=== PATIENT | male | born 1990 | race Caucasian/White ===

== ENCOUNTER 2024-03-13 16:01 | Outpatient (CLI) | payer BC, SELFPAY ==
--- NOTE | ~2024-03-13 | XR_ITS ---
Left Hand Technique: PA, oblique, and lateral views were obtained. Clinical History: Other specified soft tissue disorder Findings: No acute fracture or dislocation is seen. Osseous alignment is anatomic. There is irregular ity of the base of the distal phalanx of the thumb, suggestive of subacute or possible chronic fractu re deformity with possible and nonopacified degenerative change of the interphalangeal joint. Remaini ng osseous structures and joint spaces are intact. Soft tissues are unremarkable. 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 If there is concern for acute fracture, then consider CT or MR for further evaluation. Reviewed, dictated and finalized at location . Impression: Probable subacute to chronic fracture deformity of the base of the distal findi ngs of the thumb with suspected mild posttraumatic degenerative change of the i nterphalangeal joint of the thumb. If there is concern for acute fracture, then consider CT or MR for further evaluation.
[2024-03-13 18:36] LABS: Hematocrit 45.8 % (42.0-52.0); Hemoglobin 15.8 g/dL (14.0-18.0); Mean Corpuscular HGB Conc 34.5 g/dl (32-36); Mean Corpuscular Hemoglobin 30.3 pg (26-34); Mean Corpuscular Volume 87.7 fl (80-100); Mean Platelet Volume 10.3 fl (7.4-10.4); Platelet Count Result 250 k/mm3 (150-375); Red Blood Count 5.22 M/mm3 (4.6-6.20); Red Cell Distribution Width 13.2 % (11.5-14.5); White Blood Count 8.7 K/mm3 (4.5-10.0)
[2024-03-13 20:11] LABS: Alanine Aminotransferase 33 U/L (6-50); Albumin Level 4.5 g/dL (3.5-5.1); Alkaline Phosphatase 86 U/L (38-126); Anion Gap 7 mmol/L (4-12); Aspartate Amino Transferase 43 U/L (17-59); Bilirubin,Total 0.5 mg/dL (0.2-1.3); Blood Urea Nitrogen 17 mg/dL (9-20); Calcium 8.9 mg/dL (8.4-10.2); Carbon Dioxide 28 mmol/L (22-30); Chloride 105 mmol/L (98-107); Cholesterol 168 mg/dL (0-200); Estimated Glomerular Filt Rate > 60; Glucose 86 mg/dL (65-110); HDL Direct 32 mg/dL; Sodium 140 mmol/L (137-145); Triglycerides 319 mg/dL (<150); Uric Acid 4.6 mg/dL (3.5-8.5)
[2024-03-13 20:22] LABS: LDL Cholesterol Direct 102 mg/dL
[2024-03-13 21:09] LABS: Hemoglobin A1C 5.2 % (<5.7)
[2024-03-13 21:15] LABS: Folic Acid 12.2 ng/mL (2.76->20)
[2024-03-14 14:58] LABS: ANA Cascade Screen NEGATIVE (NEGATIVE)
== END 2024-03-13 16:02 | disposition home or self-care (01) ==
PROVIDERS: PCP Nurse Practitioner Adult Health; Visit Provider Nurse Practitioner Adult Health
DX: M79.89 Other specified soft tissue disorders (principal); M10.9 Gout, unspecified; L40.9 Psoriasis, unspecified; Z13.9 Encounter for screening, unspecified
CPT/HCPCS: 36415; 73130; 80053; 80061; 82607; 82746; 83036; 84443; 84550; 85027; 86038; 86225; 86235; 86364